=== PATIENT | male | born 1965 | race Caucasian/White ===

== ENCOUNTER 2023-10-06 13:51 | Emergency (ER) | payer SELFPAY ==
--- NOTE | ~2023-10-06 | XR_ITS ---
EXAM: XR finger 2nd RT min 2V DATE: 10/06/2023 14:38 HISTORY: laceration from table saw to distal 2nd digit . COMPARISON: None available. FINDINGS: Normal mineralization. Comminuted fracture of the proximal and lateral aspect of the right second distal phalange with overlying soft tissue defect. Minimal calcific/ossific fragmentation adj acent to the proximal aspect of the right second middle phalange. No lytic or blastic lesion. Joint s paces and physes are maintained. No erosion or periosteal change. IMPRESSION: Comminuted open fracture of the proximal and lateral aspect of the right second distal ph alange. Calcific or ossific fragments adjacent to the proximal and medial aspect of the right second middle p halange, likely chronic/degenerative blastic bony by overlying soft tissue injury. Reviewed, dictated and finalized at location K. IMPRESSION: Comminuted open fracture of the proximal and lateral aspect of the right second distal phalange. Calcific or ossific fragments adjacent to the proximal and medial aspect of the right second middle phalange, likely chronic/degenerative blastic bony by over lying soft tissue injury.
[2023-10-06 13:57] VITALS: BP 171/95; PULSE 94; RESP 20; TEMP 36.5; O2SAT 99
--- NOTE | 2023-10-06 14:19 | ED.GENADULT ---
HPI - General Adult General Chief complaint: Extremity Injury, Upper <Corbin Naylor MD - Last Filed: 10/06/23 19:11> Stated complaint: finger tip laceration <Corbin Naylor MD - Last Filed: 10/06/23 19:11> Time Seen by Provider: 10/06/23 13:59 <Corbin Naylor MD - Last Filed: 10/06/23 19:11> History of Present Illness HPI narrative: 57-year-old male presenting to the emergency department for evaluation of laceration to his right index finger. Patient states he was using a table cell and inadvertently stuck his finger in the running saw. Patient does have a laceration to the distal aspect of the finger. Decreased sensation distally. Vascularly intact. <Corbin Naylor MD - Last Filed: 10/06/23 19:11> Related Data Allergies/adverse reactions: Allergies Allergy/AdvReac Type Severity Reaction Status Date / Time No Known Allergies Verified 10/06/23 14:03 <Corbin Naylor MD - Last Filed: 10/06/23 19:11> Review of Systems Review of Systems: All systems reviewed & are unremarkable except as noted in HPI and below <Corbin Naylor MD - Last Filed: 10/06/23 19:11> PMFSH Family History Family History: Family History (Updated 01/07/16 @ 23:19 by DOCTOR UNKNOWN) Father Cerebrovascular accident Family history of diabetes mellitus in first degree relative Mother Family history of lymphoma Other Hypertension <Corbin Naylor MD - Last Filed: 10/06/23 19:11> Social History Social History: Social History Alcohol intake: current <Corbin Naylor MD - Last Filed: 10/06/23 19:11> Exam Narrative: APPEARANCE: Well appearing, no pain, no distress, well-nourished. HEAD: normocephalic, atraumatic. EYES: PERRLA/EOMI, conjunctivae clear. NOSE: Normal no drainage EARS:TMS clear with good light reflex. THROAT: Pharynx clear, no exudate. NECK: Supple. No adenopathy, no masses. RESPIRATORY: Airway patent, respirations nonlabored. Clear to auscultation bilaterally, no rales, rhonchi, wheezing. CARDIOVASCULAR: Regular rate and rhythm without murmurs rubs or gallops. ABDOMINAL: Soft, nontender, nondistended, normal bowel sounds MUSCULOSKELETAL: Moves all extremities. Strength/ROM intact, No edema, No calf tenderness. NEURO: Alert. Cranial nerves II through XII intact. Grossly intact SKIN: Laceration to right 2nd finger <Corbin Naylor MD - Last Filed: 10/06/23 19:11> Course Vital Signs Vital signs: Vital Signs Temperature 97.7 F 10/06/23 13:57 Pulse Rate 94 10/06/23 13:57 Respiratory Rate 20 10/06/23 13:57 Blood Pressure 171/95 H 10/06/23 13:57 Pulse Oximetry 99 10/06/23 13:57 Oxygen Delivery Room Air 10/06/23 13:57 Temperature 97.7 F 10/06/23 13:57 Pulse Rate 94 10/06/23 13:57 Respiratory Rate 20 10/06/23 13:57 Blood Pressure 171/95 H 10/06/23 13:57 Pulse Oximetry 99 10/06/23 13:57 Oxygen Delivery Room Air 10/06/23 13:57 <Corbin Naylor MD - Last Filed: 10/06/23 19:11> Vital Signs Temperature 97.7 F 10/06/23 13:57 Pulse Rate 94 10/06/23 13:57 Respiratory Rate 20 10/06/23 13:57 Blood Pressure 171/95 H 10/06/23 13:57 Pulse Oximetry 99 10/06/23 13:57 Oxygen Delivery Room Air 10/06/23 13:57 Temperature 97.7 F 10/06/23 13:57 Pulse Rate 94 10/06/23 13:57 Respiratory Rate 20 10/06/23 13:57 Blood Pressure 171/95 H 10/06/23 13:57 Pulse Oximetry 99 10/06/23 13:57 Oxygen Delivery Room Air 10/06/23 13:57 <ELENA Nino Last Filed: 10/06/23 17:57> Procedures Laceration Laceration 1: Date: 10/06/23 <ELENA Nion Last Filed: 10/06/23 17:57> Time: 16:20 <ELENA Nino Last Filed: 10/06/23 17:57> Site: hand <Deonna Avila PA-C - Last Filed: 10/06/23 17:57> Side (If applicable): right (2nd digit) <ELENA Nino Filed:
[2023-10-06] MEDS: TETANUS,DIPHTHERIA,AC PERTUSSIS ADULT (0.5 ML) BOOSTRIX IM (14:28)
[2023-10-06] MEDS: AMOXICILLIN/CLAVULANATE K 875-125 MG TAB 1 TABLET PO (15:17)
== END 2023-10-06 17:50 | disposition home or self-care (01) ==
PROVIDERS: Emergency Provider Emergency Medicine
DX: S62.610B Displaced fracture of proximal phalanx of right index finger, initial encounter for open fracture (principal); Z23 Encounter for immunization; W31.2XXA Contact with powered woodworking and forming machines, initial encounter
CPT/HCPCS: 12001; 29130; 73140; 90471; 90715; 99284; A9270